=== PATIENT | male | born 1975 | race Caucasian/White ===

== ENCOUNTER 2017-08-19 13:20 | Observation (INO) | payer OTHER ==
[~2017-08-19] VITALS: Ht 180.3 cm; Wt 83.9 kg
[2017-08-19 14:00] LABS: ABSOLUTE BASOPHIL COUNT 0.1 /CUMM (0.0-0.2); ABSOLUTE EOSINOPHIL COUNT 0.1 /CUMM (0.0-0.7); ABSOLUTE GRANULOCYTE CT 5.3 /CUMM (1.4-6.5); ABSOLUTE MONOCYTE COUNT 0.3 /CUMM (0.10-0.60); BASOPHIL % 0.7 % (0.0-2.0); EOSINOPHIL % 1.2 % (0-5); GRANULOCYTE % 60.3 % (42.2-75.2); HEMATOCRIT 45.5 % (42-52); MEAN CORPUSCULAR HGB CONC 35.1 G/DL (33.0-37.0); MEAN CORPUSCULAR VOLUME 91.1 FL (80.0-94.0); MEAN PLATELET VOLUME 7.5 FL (7.4-10.4); PLATELET COUNT 365 /CUMM (130-400); RBC DISTRIBUTION WIDTH 13.4 % (11.5-14.5); RED BLOOD CELL CT 4.99 /CUMM (4.70-6.10); WHITE BLOOD CELL COUNT 8.7 /CUMM (4.8-10.8)
--- NOTE | 2017-08-19 15:35 | ED GENERAL ADULT ---
See Addendum History of Present Illness General Chief Complaint: ETOH/Drug Related Complaint Stated Complaint: HIGHWATCH CLEARANCE Source: patient, family Exam Limitations: no limitations Vital Signs & Intake/Output Vital Signs & Intake/Output Vital Signs Date Time Temp Pulse Resp B/P B/P Pulse O2 O2 Flow FiO2 Mean Ox Delivery Rate 08/20 0453 97.9 74 18 176/94 94 Room Air 08/20 0200 96.1 87 18 156/76 08/20 0200 96.1 87 18 156/76 97 Room Air 08/20 0000 99.1 107 18 150/80 08/20 0000 99.1 107 18 150/80 94 Room Air 08/19 2223 98.0 96 20 166/80 96 Room Air 08/19 2200 98.0 96 20 166/80 08/19 2053 98.6 86 18 146/80 08/19 2052 98.6 86 18 146/80 96 Room Air 08/19 1851 98.0 92 20 131/72 08/19 1845 92 18 131/72 95 Room Air 08/19 1614 97 Room Air 08/19 1600 97.9 78 20 163/94 08/19 1324 98.3 97 20 163/94 97 Room Air ED Intake and Output 08/20 0000 08/19 1200 Intake Total 0 Output Total Balance 0 Intake, Oral 0 Patient 195 lb Weight Weight Reported by Patient Measurement Method Allergies Coded Allergies: No Known Allergies (08/19/17) Reconcile Medications No Known Home Medications Triage Note: PT REQUEST ETOH DETOX. LAST DRINK THIS AM. DENIES SEIZURES WITH DETOX. DENIES SI/HI Triage Nurses Notes Reviewed? yes Onset: Gradual Duration: worse persistent since (1 weeks) Timing: recent history Injury Environment: home Severity: moderate No Modifying Factors: none HPI: Patient is a 42-year-old male presenting to the emergency department with chief complaint of alcohol detox. Patient reports that he has been an on and off drinker for several years, worse over the past several weeks. Denies any history of withdrawal seizures. He does admit to drinking vodka prior to arrival. . Reports he gets agitated if he does not drink. Patient would like to be admitted to [facility]. Denies history of pancreatitis. Denies any nausea or vomiting fevers chills chest pain or shortness of breath. (Rosa MCGEE,Deidra) Past History Travel History Traveled to [place] past 21 day No Medical History Any Pertinent Medical History? see below for history Surgical History Surgical History: non-contributory Psychosocial History What is your primary language Kinyarwanda Tobacco Use: Current Daily Use Daily Tobacco Use Amount/Type: => 5 Cigarettes daily ETOH Use: heavy use Illicit Drug Use: denies illicit drug use Family History Hx Contributory? No (Deidra Pemberton) Review of Systems Review of Systems Constitutional: Reports: no symptoms. Comments Review of systems: See HPI, All other systems negative. Constitutional, no chills fever or weight loss HEENT: No visual changes no sore throat no congestion Cardiovascular: No chest pain ,palpitation , orthopnea or ankle swelling Skin, no jaundice no rashes Respiratory: No dyspnea cough sputum or hemoptysis GI: No nausea no vomiting : No dysuria No hematuria Muscle skeletal: no back pain, no neck pain, Neurologic: No numbness no confusion Psych: Positive anxiety, denies homicidal or suicidal ideation. Heme/endocrine: No bruising no bleeding no polyuria or polydipsia Immunology: No splenectomy or history of AIDS (Deidra Pemberton) Physical Exam Physical Exam General Appearance: well developed/nourished, no apparent distress, alert, awake , comfortable Comments: Well-developed well-nourished person in no acute distress HEENT: Pupils equally round and reactive to light and accommodation. Nose is atraumatic. Neck: Normal inspection Back: Nontender Cardiovascular: Regular rate and rhythms no murmurs rubs or gallops, normal JVP Respiratory: No respiratory distress.breath sounds clear to auscultation bilaterally Extremity: No edema Neuro: Alert oriented x3 Skin: No appreciable rash on exposed skin, skin is warm and dry. Psych: Mood and affect is normal, memory and judgment is normal. Core Measures ACS in differential dx? No CVA/TIA Diagnosis: No Sepsis Present: No Sepsis Focused Exam Completed? No (Deidra Pemberton) Progress Differential Diagnoses I considered the following diagnoses in my evaluation of the patient: Alcohol dependence, alcoholic detox, polysubstance withdrawal, alcohol abuse, Plan of Care: Orders Procedure Date/time Status Regular Diet 08/19 D Active Intake & Output 08/19 1613 Active OXYGEN SETUP (GEN) 08/19 155 Active Saline Lock 08/[address] in observation 08/19 1552 Active Patient Data 08/19 1552 Active Vital Signs 08/19 1552 Active Activity/Ambulation 08/19 1552 Active Code Status 08/19 1552 Active CIWA 08/19 1328 Active URINE DRUG SCREEN FOR ER ONLY 08/19 1328 Complete LIPASE 08/19 1328 Complete ETHANOL 08/19 1328 Complete COMPREHENSIVE METABOLIC PANEL 08/19 1328 Complete CBC WITHOUT DIFFERENTIAL 08/19 1328 Complete AMYLASE 08/19 1328 Complete Current Medications Sig/Vernell Start time Last Medication Dose Stop Time Status Admin Clonidine 0.1 MG Q6P PRN 08/19 1944 AC (Catapres) Trazodone HCl 50 MG AT BEDTIME NEED.. 08/19 194 AC 08/19 (Desyrel) 222 Gabapentin 300 MG Q8 08/19 153 AC 08/19 (Neurontin) 222 Laboratory Tests 08/19/17 1359: Urine Opiates Screen < 100.00, Methadone Screen < 40, Barbiturate Screen < 60, Ur Phencyclidine Scrn < 6.00, Amphetamines Screen < 100, U Benzodiazepines Scrn < 85, Urine Cocaine Screen < 50, Urine Cannabis Screen < 5.00 08/19/17 1352: Anion Gap 17 H, Estimated GFR > 60, BUN/Creatinine Ratio 17.5, Glucose 77, Calcium 9.4, Total Bilirubin 0.8, AST 52, ALT 49, Alkaline Phosphatase 84, Total Protein 8.3 H, Albumin 5.0, Globulin 3.3, Albumin/Globulin Ratio 1.5, Amylase 55, Lipase 164, CBC w Diff NO MAN DIFF REQ, RBC 4.99, MCV 91.1, MCH 32.0 H, MCHC 35.1, RDW 13.4, MPV 7.5, Gran % 60.3, Lymphocytes % 34.5, Monocytes % 3.3, Eosinophils % 1.2, Basophils % 0.7, Absolute Granulocytes 5.3, Absolute Lymphocytes 3.0, Absolute Monocytes 0.3, Absolute Eosinophils 0.1, Absolute Basophils 0.1, Serum Alcohol 319.0 Initial ED EKG: none Hand-Off Endorsed To: Lou HARDY,[place] Albert Endorsed Time: 2300 Pending: other (Deidra Pemberton) Departure Departure Disposition: HOME OR SELF CARE Condition: Stable Clinical Impression Primary Impression: Alcohol dependence Qualifiers: Substance use status: uncomplicated Qualified Code: F10.20 - Alcohol dependence, uncomplicated Referrals: Patient Has No Primary Care Dr (PCP/Family) Departure Forms: Customer Survey General Discharge Information Prescriptions: Current Visit Scripts No Known Home Medications (Deidra Pemberton) Departure Additional Instructions: CLEARED TO GO TO HIGH WATCH PA/MILITARY SCIENCE TEACHER Co-Sign Statement Statement: ED Attending supervision documentation- [X] I saw and evaluated the patient. I have also reviewed all the pertinent lab results and diagnostic results. I agree with the findings and the plan of care as documented in the PA's/MILITARY SCIENCE TEACHER's documentation. [X] I have reviewed the ED Record and agree with the PA's/MILITARY SCIENCE TEACHER's documentation. [] Additions or exceptions (if any) to the PAs/MILITARY SCIENCE TEACHER's note and plan are summarized below: [] (Lou HARDY,[place] Albert) Critical Care Note Critical Care Note Critical Care Time: non-applicable (Deidra Pemberton) ED Attending Observation Initial Observation Note: I have seen and personally examined INDIRA MAYNARD on 08/19/17 at 2351. I agree with the current emergency department documentation. The disposition (admission or discharge) is uncertain at this time, he needs a period of observation for the following reason(s): The ED Nurse caring for this patient has been personally informed as to what the patient is being observed for. Observation Re-Evaluation: I have reevaluated INDIRA MAYNARD on 08/19/17 at 2351. The physical findings that support the continued need to observe this patient include [continue to follow the CIWA score. Treat as indicated. Unsure if the patient will admission or if he is stable for discharge to alcohol rehabilitation. His lungs are clear to auscultation bilaterally. Cardiac is regular rate and rhythm.]. (Lou HARDY,[place] Albert)
[2017-08-19 16:00] VITALS: BP 163/94
[2017-08-19 18:51] VITALS: BP 131/72
[2017-08-19 20:53] VITALS: BP 146/80
[2017-08-19 22:00] VITALS: BP 166/80
[2017-08-20] VITALS: BP 150/80
[2017-08-20 02:00] VITALS: BP 156/76
[2017-08-20 05:00] VITALS: BP 176/94
[2017-08-20 07:40] VITALS: BP 175/93
== END 2017-08-20 11:18 ==
LOC: ERH 13:20 → ERHI 15:52
PROVIDERS: Physician Assistant
DX: F10.20 Alcohol dependence, uncomplicated (principal); F17.200 Nicotine dependence, unspecified, uncomplicated; F41.9 Anxiety disorder, unspecified
CPT/HCPCS: 6090; 80307; 96374; G0378; G0480; J7060